=== PATIENT | male | born 1960 | race Two or more races ===

== ENCOUNTER 2023-10-08 01:50 | Emergency (ER) | payer OTHER ==
[~2023-10-08] VITALS: Ht 172.7 cm; Wt 78.2 kg
[2023-10-08 02:31] VITALS: TEMP 97.6
[2023-10-08] MEDS: ACETAMINOPHEN 500 MG TABLET PO ONE (03:44)
[2023-10-08] MEDS: BACITRACIN 0.9 GM PACKET OINTMENT TP ONE (03:46)
[2023-10-08] MEDS: PERTUSS(ACELL),DIPH,TET/PF 0.5 ML SYRINGE [ADULT] IM. ONE (03:46)
[2023-10-08 05:25] VITALS: BP 145/96; PULSE 68; RESP 16
== END 2023-10-08 05:26 | disposition home or self-care (01) ==
LOC: EMS 01:50
DX: S09.90XA Unspecified injury of head, initial encounter (principal); I10 Essential (primary) hypertension; Z91.013 Allergy to seafood; Y08.89XA Assault by other specified means, initial encounter; Y93.89 Activity, other specified; Y92.89 Other specified places as the place of occurrence of the external cause; Y99.8 Other external cause status
CPT/HCPCS: 70450; 72125; 90471; 90715; 99285